=== PATIENT | female | born 1995 | race Hispanic/Latino ===

== ENCOUNTER 2016-11-30 15:16 | Emergency (ER) | payer BC, OTHER ==
[2016-11-30 15:33] VITALS: TEMP 97.8; O2SAT 100
[2016-11-30] MEDS ORDERED: Sodium Chloride 0.9% 1,000 ML IV STA (15:41)
--- NOTE | 2016-11-30 15:45 | ED PDOC ---
HPI: Abdomen Time Seen by Provider: 11/30/16 15:37 Chief Complaint (Nursing): GI Problem Chief Complaint (Provider): GI Problem History Per: Patient History/Exam Limitations: no limitations Onset/Duration Of Symptoms: Hrs Current Symptoms Are (Timing): Still Present Severity: Mild Location Of Pain/Discomfort: Diffuse Associated Symptoms: Nausea, Vomiting Exacerbating Factors: None Alleviating Factors: None Additional Complaint(s): Patient is a 21 year old female who presents to ED for evaluation of nausea and vomiting that began last night. Patient admits to drinking large quantities of tequila. Denies chest pain, abdominal pain, back pain or diarrhea. Past Medical History Reviewed: Historical Data, Nursing Documentation, Vital Signs Vital Signs: Last Vital Signs Temp 97.8 F 11/30/16 15:27 Pulse 76 11/30/16 15:27 Resp 18 11/30/16 15:27 BP 142/81 11/30/16 15:27 Pulse Ox 100 11/30/16 15:47 - Medical History PMH: No Chronic Diseases - Surgical History Surgical History: No Surg Hx - Family History Family History: States: No Known Family Hx - Living Arrangements Living Arrangements: With Family - Home Medications Home Medications: Ambulatory Orders Medication Instructions Recorded Ondansetron [Zofran] 4 mg PO Q8H #10 tab 11/30/16 - Allergies Allergies/Adverse Reactions: Allergies Allergy/AdvReac Type Severity Reaction Status Date / Time No Known Allergies Allergy Verified 11/30/16 15:27 Review of Systems ROS Statement: Except As Marked, All Systems Reviewed And Found Negative Constitutional: Negative for: Fever Gastrointestinal: Positive for: Nausea, Vomiting. Negative for: Abdominal Pain , Diarrhea Genitourinary Female: Negative for: Dysuria, Hematuria Musculoskeletal: Negative for: Back Pain Neurological: Negative for: Weakness Physical Exam - Reviewed Nursing Documentation Reviewed: Yes Vital Signs Reviewed: Yes - Physical Exam Appears: Positive for: Non-toxic, No Acute Distress Skin: Positive for: Normal Color, Warm Eye Exam: Positive for: Normal appearance ENT: Negative for: Normal ENT Inspection ((+) DMM) Neck: Positive for: Normal, Painless ROM Cardiovascular/Chest: Positive for: Regular Rate, Rhythm. Negative for: Murmur Respiratory: Positive for: Normal Breath Sounds. Negative for: Respiratory Distress Gastrointestinal/Abdominal: Positive for: Normal Exam. Negative for: Tenderness Back: Positive for: Normal Inspection Extremity: Positive for: Normal ROM Neurologic/Psych: Positive for: Alert, Oriented - Laboratory Results Result Diagrams: 11/30/16 16:37 11/30/16 16:37 - ECG O2 Sat by Pulse Oximetry: 100 (RA) Pulse Ox Interpretation: Normal - Progress Re-evaluation Time: 18:21 Condition: Improved Medical Decision Making Medical Decision Making: Time: 1540 Initial impression: Dehydration Initial plan: -- Alcohol serum -- CMP -- Urine preg -- CBC -- NSF and Zofran Scribe Attestation: Documented by Elvie Denise acting as a scribe for Devin Goodman MD MD Scribe Attestation: All medical record entries made by the Scribe were at my direction and personally dictated by me. I have reviewed the chart and agree that the record accurately reflects my personal performance of the history, physical exam, medical decision making, and the department course for this patient. I have also personally directed, reviewed, and agree with the discharge instructions and disposition. Disposition - Clinical Impression Clinical Impression: Dehydration - Patient ED Disposition Is Patient to be Admitted: No Counseled Patient/Family Regarding: Studies Performed, Diagnosis, Need For Followup, Rx Given - Disposition Referrals: FAMILY PROVIDER,NO [Primary Care Provider] - [facility] [Outside] Disposition: Routine/Home Disposition Time: 18:21 Condition: FAIR Prescriptions: Ondansetron [Zofran] 4 mg PO Q8H #10 tab Instructions: Dehydration (ED)
[2016-11-30 16:42] LABS: BASO % 0.2 % (0.0-2.0); EOS # 0.1 K/uL (0.0-0.7); EOS % 0.9 % (0.0-4.0); HEMATOCRIT 41.5 % (34.0-47.0); LYMPH # 0.4 K/uL (1.0-4.3); LYMPH % 3.9 % (20.0-40.0); MEAN CELL VOLUME 90.5 fl (81.0-99.0); MEAN CORPUSCULAR HEMOGLOBIN 30.1 pg (27.0-31.0); MEAN CORPUSCULAR HGB CONC 33.2 g/dL (33.0-37.0); MONO # 0.6 K/uL (0.0-0.8); MONO % 5.5 % (0.0-10.0); NEUT # 9.8 K/uL (1.8-7.0); NEUT % 89.5 % (50.0-75.0); NRBC % 0.1 % (0.0-0.0); PLATELET COUNT 307 K/uL (130-400); RED CELL DISTRIBUTION WIDTH 13.6 % (11.5-14.5); WHITE BLOOD COUNT 10.9 K/uL (4.8-10.8)
[2016-11-30 17:14] LABS: ALB/GLOB RATIO 1.2 (1.0-2.1); ALCOHOL SERUM < 10 mg/dl (0-10); ALKALINE PHOSPHATASE 74 U/L (38-126); ALT/SGPT 16 U/L (9-52); AST/SGOT 35 U/L (14-36); BILIRUBIN,TOTAL 0.7 mg/dl (0.2-1.3); BLOOD UREA NITROGEN 14 mg/dl (7-17); CALCIUM 9.6 mg/dL (8.4-10.2); CARBON DIOXIDE 19 mmol/L (22-30); CHLORIDE 106 mmol/L (98-107); GFR AFRICAN-AMERICAN > 60; GLUCOSE,RANDOM 100 mg/dL (65-105); POTASSIUM 4.4 MMOL/L (3.6-5.0); SODIUM 145 mmol/l (132-148); TOTAL PROTEIN 8.2 G/DL (6.3-8.2)
[2016-11-30 17:42] LABS: NEUTROPHIL 84 % (42-75); TOTAL CELLS COUNTED 100
[2016-11-30 19:18] VITALS: BP 122/65; PULSE 75; RESP 14
== END 2016-11-30 19:17 | disposition home or self-care (01) ==
LOC: H.ER 15:16
DX: E86.0 Dehydration (principal)
CPT/HCPCS: 80053; 81025; 85025; 96374; 99283; G0480; J2405; J7040